=== PATIENT | female | born 1965 | race African-American/Black ===

== ENCOUNTER 2016-10-12 11:18 | Emergency (ER) | payer MEDICAID ==
[~2016-10-12] VITALS: Ht 172.7 cm; Wt 85.0 kg
[2016-10-12] MEDS ORDERED: ONDANSETRON HCL 4MG/2ML VIAL IV STA (12:26)
[2016-10-12] MEDS ORDERED: MORPHINE SULFATE 4 MG/ML CPJ (NOT FOR IM USE) IV STA (12:26)
[2016-10-12] MEDS ORDERED: SODIUM CHLORIDE 0.9% 1,000 ML IV ONE (12:26)
[2016-10-12 13:06] LABS: BASOPHILS % 0.4 % (0.0-2.0); DIFFERENTIAL COMMENT 0; EOSINOPHILS % 1.1 % (0.0-5.0); HEMATOCRIT. 28.9 % (36.0-48.0); HEMOGLOBIN. 9.1 g/dL (12.0-16.0); LYMPHOCYTES % 23.9 % (20.0-50.0); MEAN CORPUSCULAR HEMOGLOBIN 23.4 pg (28.0-32.0); MEAN CORPUSCULAR HGB CONC 31.5 g/dL (31.0-37.0); MEAN CORPUSCULAR VOLUME 74.3 fL (81.0-99.0); MEAN PLATELET VOLUME 8.3 fl (7.4-10.4); MONOCYTES % 9.5 % (2.0-8.0); NEUTROPHILS % 65.1 % (40.0-76.0); PLATELET 344 x1000/uL (130-400); RED BLOOD CELL COUNT 3.88 mill/uL (4.2-5.4); RED CELL DISTRIBUTION WIDTH 18.9 % (11.6-14.6); WHITE BLOOD COUNT 13.7 x1000/uL (4.5-11.0)
[2016-10-12 13:13] LABS: CHLORIDE 105 mEq/L (98-107); INDEX HEMOLYSI 1 (1-3); INDEX ICTERIC 1 (1-4); INDEX LIPEMIC 1 (1-3)
[2016-10-12 13:14] LABS: HCG SCREEN NEGATIVE
[2016-10-12 13:15] LABS: PROTHROMBIN TIME 10.6 sec
[2016-10-12 13:19] LABS: CLARITY URINE CLEAR (CLEAR); COLOR URINE YELLOW (YELLOW); GLUCOSE URINE NEGATIVE (NEGATIVE); KETONES URINE NEGATIVE (NEGATIVE); LEUKOCYTE ESTERASE URINE 1+ (NEGATIVE); NITRITE URINE NEGATIVE (NEGATIVE); OCCULT BLOOD URINE NEGATIVE (NEGATIVE); PH URINE 7.5 (4.5-8.0); PROTEIN URINE NEGATIVE (NEGATIVE); SPECIFIC GRAVITY URINE 1.012 (1.005-1.030); UROBILINOGEN URINE 0.2 E.U./dL (0.2-1.0)
[2016-10-12 13:21] LABS: ALANINE AMINOTRANSFERASE 60 IU/L (13-61); ALBUMIN 3.4 g/dL (3.4-5.0); ANION GAP 7; CARBON DIOXIDE 31 mEq/L (21-32); LIPASE 220 IU/L (73-393); UREA NITROGEN BLOOD 6 mg/dL (7-21); eGFR > 60 mL/min (>60)
[2016-10-12 13:46] LABS: BACTERIA URINE TRACE; RBC URINE NONE SEEN /hpf (0-2); SQUAMOUS EPITHELIAL CELL URINE FEW /lpf (RARE/1+)
[2016-10-12 13:47] LABS: TRICHOMONAS URINE RARE
[2016-10-12 16:34] VITALS: BP 124/82
== END 2016-10-12 16:45 | disposition home or self-care (01) ==
LOC: ER 14:37
DX: R10.11 Right upper quadrant pain (principal); I10 Essential (primary) hypertension; Z87.19 Personal history of other diseases of the digestive system
CPT/HCPCS: 36415; 74176; 80053; 81001; 83690; 84703; 85025; 85610; 96361; 96374; 96375; 99285; J2270; J2405; J7030; Z7610

== ENCOUNTER 2020-04-11 08:23 | Emergency (ER) | payer MEDICAID ==
[~2020-04-11] VITALS: Ht 170.2 cm; Wt 103.0 kg
[2020-04-11] MEDS ORDERED: KETOROLAC 30MG/ML VIAL IM ONE (09:00)
[2020-04-11 09:34] LABS: CLARITY URINE CLEAR (CLEAR); COLOR URINE YELLOW (YELLOW); KETONES URINE NEGATIVE (NEGATIVE); LEUKOCYTE ESTERASE URINE 2+ (NEGATIVE); NITRITE URINE NEGATIVE (NEGATIVE); OCCULT BLOOD URINE 1+ (NEGATIVE); PROTEIN URINE TRACE (NEGATIVE); SPECIFIC GRAVITY URINE 1.015 (1.005-1.030)
[2020-04-11] MEDS ORDERED: CEPHALEXIN 250MG CAPSULE PO ONE (10:45)
[2020-04-11 11:03] VITALS: BP 165/94
== END 2020-04-11 11:05 | disposition home or self-care (01) ==
LOC: ER 08:23
DX: N39.0 Urinary tract infection, site not specified (principal); K80.20 Calculus of gallbladder without cholecystitis without obstruction; I10 Essential (primary) hypertension
CPT/HCPCS: 76770; 81003; 87077; 87086; 87186; 96372; 99284; J1885

== ENCOUNTER 2021-02-28 11:43 | Emergency (ER) | payer SELFPAY ==
[~2021-02-28] VITALS: Ht 170.2 cm; Wt 109.0 kg
[2021-02-28 12:54] LABS: BASOPHILS % 0.6 % (0.0-2.0); EOSINOPHILS % 2.9 % (0.0-5.0); HEMATOCRIT. 39.4 % (36.0-48.0); HEMOGLOBIN. 13.3 g/dL (12.0-16.0); LYMPHOCYTES % 34.9 % (20.0-50.0); MEAN CORPUSCULAR HEMOGLOBIN 27.5 pg (28.0-32.0); MEAN CORPUSCULAR VOLUME 81.7 fL (81.0-99.0); MONOCYTES % 7.6 % (2.0-8.0); PLATELET 369 x1000/uL (130-400); RED BLOOD CELL COUNT 4.83 mill/uL (4.2-5.4)
[2021-02-28 13:02] LABS: CHLORIDE 104 mEq/L (98-107)
[2021-02-28 13:09] LABS: CLARITY URINE CLOUDY (CLEAR); COLOR URINE YELLOW (YELLOW); KETONES URINE NEGATIVE (NEGATIVE); LEUKOCYTE ESTERASE URINE 1+ (NEGATIVE); NITRITE URINE NEGATIVE (NEGATIVE); OCCULT BLOOD URINE NEGATIVE (NEGATIVE); PROTEIN URINE NEGATIVE (NEGATIVE); SPECIFIC GRAVITY URINE 1.013 (1.005-1.030)
[2021-02-28] MEDS ORDERED: CEPH250C2 MT (14:28)
[2021-02-28 14:43] VITALS: BP 145/98
== END 2021-02-28 14:44 | disposition home or self-care (01) ==
LOC: ER 11:43
DX: I10 Essential (primary) hypertension (principal); N39.0 Urinary tract infection, site not specified; Z90.49 Acquired absence of other specified parts of digestive tract
CPT/HCPCS: 36415; 80048; 81003; 85025; 87077; 87086; 87186; 99283; Z7610

== ENCOUNTER 2023-09-11 12:31 | Emergency (ER) | payer MEDICAID ==
[~2023-09-11] VITALS: Ht 170.2 cm; Wt 100.0 kg
[~2023-09-11 12:31] MED LIST: CEPH250C2 MT
[2023-09-11 12:36] VITALS: O2SAT 98
[2023-09-11] MEDS ORDERED: OLOP2.5D12 LEFTEYE (14:02)
[2023-09-11] MEDS ORDERED: FLUT9.9S BOTHNSTRLS (14:02)
[2023-09-11] MEDS ORDERED: IBUP-1525 MT (14:02)
[2023-09-11] MEDS ORDERED: AMOX-494 MT (14:02)
[2023-09-11] MEDS ORDERED: CLAR10 MT (14:02)
[2023-09-11 14:14] VITALS: BP 138/63; PULSE 78; RESP 18; TEMP 98.5
== END 2023-09-11 14:15 | disposition home or self-care (01) ==
LOC: ER 13:26
DX: J01.90 Acute sinusitis, unspecified (principal); J30.9 Allergic rhinitis, unspecified; H10.12 Acute atopic conjunctivitis, left eye; I10 Essential (primary) hypertension; K80.20 Calculus of gallbladder without cholecystitis without obstruction; Z98.890 Other specified postprocedural states
CPT/HCPCS: 99283

== ENCOUNTER 2024-01-22 10:29 | Emergency (ER) | payer MEDICAID ==
[~2024-01-22] VITALS: Ht 170.2 cm; Wt 98.0 kg
[~2024-01-22 10:29] MED LIST changes: +AMOX-494 MT; +CLAR10 MT; +FLUT9.9S BOTHNSTRLS; +IBUP-1525 MT; +OLOP2.5D12 LEFTEYE
[2024-01-22 10:31] VITALS: O2SAT 94
[2024-01-22] MEDS ORDERED: OFLO5DRO4 EACH EAR (11:41)
[2024-01-22 12:13] VITALS: BP 153/94; PULSE 58; RESP 16; TEMP 36.83628; O2SAT 94
== END 2024-01-22 13:30 | disposition home or self-care (01) ==
LOC: ER 10:36
DX: H60.92 Unspecified otitis externa, left ear (principal); I10 Essential (primary) hypertension; Z98.890 Other specified postprocedural states
CPT/HCPCS: 99283